=== PATIENT | female | born 1945 | race Caucasian/White ===

== ENCOUNTER 2017-12-23 07:50 | Observation (INO) | payer BC, MEDICARE ==
[2017-12-21 09:40] LABS: BASOPHILS % (AUTO) 0.5 % (0.0-5.0); EOSINOPHILS % (AUTO) 0.6 % (0.0-8.0); HEMATOCRIT 34.4 % (36-48); LYMPHOCYTES % (AUTO) 14.7 % (21.0-51.0); MEAN CORPUSCULAR HGB CONC 34.2 g/dL (32.0-36.0); MEAN CORPUSCULAR VOLUME 93.5 fL (79-99); MONOCYTES % (AUTO) 9.4 % (3.0-13.0); NEUTROPHILS % (AUTO) 74.8 % (40.0-77.0); PLATELET COUNT (AUTO) 385 K/uL (130-400); RED BLOOD CELL COUNT(AUTO) 3.68 MIL/uL (4.00-5.50); RED CELL DISTRIBUTION WIDTH 15.1 % (11.0-15.5); WHITE BLOOD COUNT (AUTO) 12.3 K/uL (4.8-10.8)
[2017-12-21 09:50] LABS: CREATININE 0.8 mg/dL (0.5-1.5); POTASSIUM 4.7 mmol/L (3.5-5.1)
[2017-12-21 09:59] VITALS: BP 128/67
[2017-12-21 10:03] LABS: INR 1.85 (0.85-1.15); PARTIAL THROMBOPLASTIN TIME 31.6 SEC (26.3-35.5); PROTHROMBIN TIME 19.2 SEC (9.6-11.6)
[2017-12-23] VITALS (10 sets, daily range): BP systolic 90–119; BP diastolic 47–76
[~2017-12-23] VITALS: Ht 160 cm; Wt 62.6 kg
[~2017-12-23 07:50] MED LIST: ALLO300T2 PO; ATOR10 PO; COLC0.6C3 PO; FURO40TA5 PO; GABA-318 PO; LOSA25TA21 PO; METO-409 PO; POTA-79 PO; SPIR25TA6 PO; TRAM50TA4 PO; TYL3 PO; WARF6TAB49 PO
[2017-12-23] MEDS ORDERED: CEFAZOLIN SODIUM 1 GM VIAL IVP ONE (08:00)
[2017-12-23 08:10] LABS: BASOPHILS % (AUTO) 0.8 % (0.0-5.0); EOSINOPHILS % (AUTO) 0.9 % (0.0-8.0); HEMATOCRIT 36.7 % (36-48); LYMPHOCYTES % (AUTO) 17.3 % (21.0-51.0); MEAN CORPUSCULAR HEMOGLOBIN 31.6 pg (27.0-33.0); MEAN CORPUSCULAR HGB CONC 33.7 g/dL (32.0-36.0); MEAN CORPUSCULAR VOLUME 93.7 fL (79-99); MONOCYTES % (AUTO) 8.5 % (3.0-13.0); NEUTROPHILS % (AUTO) 72.5 % (40.0-77.0); PLATELET COUNT (AUTO) 387 K/uL (130-400); RED BLOOD CELL COUNT(AUTO) 3.91 MIL/uL (4.00-5.50); RED CELL DISTRIBUTION WIDTH 15.5 % (11.0-15.5); WHITE BLOOD COUNT (AUTO) 12.8 K/uL (4.8-10.8)
[2017-12-23] MEDS ORDERED: BUPIVACAINE/PF 0.25% 30ML VIAL IJ ONE ×2 (09:00→12:11)
[2017-12-23] MEDS ORDERED: LIDOCAINE HCL 1% MDV 50ML VIAL ONE ×2 (09:01→12:11)
[2017-12-23] MEDS ORDERED: CEFAZOLIN SODIUM 1 GM VIAL ONE (09:01)
[2017-12-23] MEDS ORDERED: MIDAZOLAM HCL 1 MG/ML 2ML VIAL ONE ×4 (09:01→14:11)
[2017-12-23] MEDS ORDERED: MEPERIDINE-PF 25 MG/ML SYG ONE ×4 (09:01→14:12)
[2017-12-23] MEDS ORDERED: ISOVUE-300 100 ML VIAL IV ONE ×2 (09:01→13:04)
[2017-12-23] MEDS ORDERED: SODIUM CHLORIDE 0.9% 1000ML 1,000 ML IV ONE (09:20)
[2017-12-23 09:27] LABS: APPEARANCE,URINE CLEAR (CLEAR); BILIRUBIN,URINE NEGATIVE (NEGATIVE); COLOR,URINE YELLOW (YELLOW); GLUCOSE, URINE (UA) NEGATIVE (NEGATIVE); KETONES,URINE NEGATIVE (NEGATIVE); LEUKOCYTE ESTERASE ,URINE NEGATIVE (NEGATIVE); NITRATE,URINE NEGATIVE (NEGATIVE); OCCULT BLOOD,URINE NEGATIVE (NEGATIVE); PROTEIN,URINE NEGATIVE (NEGATIVE); UROBILINOGEN,URINE 0.2 mg/dL (0.2-1.0)
[2017-12-23] MEDS ORDERED: CEFAZOLIN 1GM / D5W 50ML 150 ML ONE (12:12)
[2017-12-23] MEDS ORDERED: LIDOCAINE HCL 2% 20ML ONE (15:04)
[2017-12-23] MEDS ORDERED: ACETAMINOPHEN-CODEINE 300/30MG TAB PO PRN ×2 (16:15)
[2017-12-23] MEDS ORDERED: TRAMADOL HCL 50 MG TABLET PO PRN (16:15)
[2017-12-23] MEDS ORDERED: ACETAMINOPHEN 325 MG TAB PO PRN (16:15)
[2017-12-23] MEDS: METOPROLOL TARTRATE 50 MG TAB PO SCH (20:59)
[2017-12-23] MEDS ORDERED: ATORVASTATIN CALCIUM 10 MG TABLET PO SCH (21:00)
[2017-12-23] MEDS ORDERED: GABAPENTIN 300 MG CAPSULE PO SCH (21:00)
[2017-12-23] MEDS: FUROSEMIDE 40 MG TABLET PO SCH (21:29)
[2017-12-23] MEDS: CEPHALEXIN 500 MG CAPSULE PO SCH (21:30)
[2017-12-23] MEDS: ACETAMINOPHEN-CODEINE 300/30MG TAB PO SCH ×2 (22:15→23:03)
[2017-12-24 03:45] VITALS: BP 103/57
[2017-12-24 04:09] LABS: BASOPHILS % (AUTO) 0.5 % (0.0-5.0); EOSINOPHILS % (AUTO) 1.2 % (0.0-8.0); HEMATOCRIT 33.3 % (36-48); LYMPHOCYTES % (AUTO) 5.9 % (21.0-51.0); MEAN CORPUSCULAR HEMOGLOBIN 31.1 pg (27.0-33.0); MEAN CORPUSCULAR HGB CONC 33.6 g/dL (32.0-36.0); MEAN CORPUSCULAR VOLUME 92.5 fL (79-99); MONOCYTES % (AUTO) 7.8 % (3.0-13.0); NEUTROPHILS % (AUTO) 84.6 % (40.0-77.0); PLATELET COUNT (AUTO) 315 K/uL (130-400); RED CELL DISTRIBUTION WIDTH 15.1 % (11.0-15.5)
[2017-12-24 04:23] LABS: PROTHROMBIN TIME 10.5 SEC (9.6-11.6)
[2017-12-24] MEDS: CEPHALEXIN 500 MG CAPSULE PO SCH (05:18)
[2017-12-24 07:30] VITALS: BP 113/66
[2017-12-24] MEDS ORDERED: DOXY100C2 PO (08:28)
[2017-12-24] MEDS: METOPROLOL TARTRATE 50 MG TAB PO SCH (08:33)
[2017-12-24] MEDS: FUROSEMIDE 40 MG TABLET PO SCH (08:33)
[2017-12-24] MEDS ORDERED: FAMOTIDINE 20MG TAB 20 MG TAB PO SCH (09:00)
[2017-12-24] MEDS ORDERED: POTASSIUM CHLORIDE 20 MEQ ERTAB PO SCH (09:00)
[2017-12-24] MEDS ORDERED: DOXYCYCLINE HYCLATE 100 MG TABLET PO SCH (09:00)
[2017-12-24] MEDS ORDERED: LOSARTAN 50 MG TABLET PO SCH (09:00)
[2017-12-24] MEDS ORDERED: ALLOPURINOL 300 MG TABLET PO SCH (09:00)
[2017-12-24] MEDS ORDERED: COLCHICINE 0.6 MG TABLET PO SCH (09:00)
[2017-12-24] MEDS ORDERED: SPIRONOLACTONE 25 MG TAB PO SCH (09:00)
[2017-12-24 11:10] VITALS: BP 87/57
[2017-12-24] MEDS ORDERED: WARFARIN SODIUM 2 MG TAB PO SCH (16:00)
== END 2017-12-24 14:15 | disposition home or self-care (01) ==
LOC: DAH 07:50 → DAHIP 07:51 → 2DH 17:04
PROVIDERS: ADMIT Family Medicine; ATTEND Family Medicine
DX: I25.5 Ischemic cardiomyopathy (principal); I48.2 Chronic atrial fibrillation; I11.0 Hypertensive heart disease with heart failure; E78.5 Hyperlipidemia, unspecified; I50.43 Acute on chronic combined systolic (congestive) and diastolic (congestive) heart failure; D72.829 Elevated white blood cell count, unspecified; I27.20 Pulmonary hypertension, unspecified; I35.0 Nonrheumatic aortic (valve) stenosis; Z87.891 Personal history of nicotine dependence; Z95.810 Presence of automatic (implantable) cardiac defibrillator; Z98.49 Cataract extraction status, unspecified eye; Z96.641 Presence of right artificial hip joint; Z82.49 Family history of ischemic heart disease and other diseases of the circulatory system; Z79.01 Long term (current) use of anticoagulants
CPT/HCPCS: 33225; 33233; 33249; 36415 ×3; 71045; 80048; 81003; 85025 ×3; 85610 ×2; 85730; 93005 ×3; 93619; 93650; A4649; C1732; C1769 ×3; C1882; C1895; C1900; G0378 ×30; J0690; J1644; J2175 ×3; J2250 ×3; J3490 ×3; J7030; Q9967; 93600; 93613; 99152; 99153

== ENCOUNTER 2018-08-19 14:30 | Inpatient (IN) | payer MEDICARE ==
[~2018-08-19] VITALS: Ht 160 cm; Wt 67.2 kg
[~2018-08-19 14:30] MED LIST changes: +DOXY100C2 PO; +LOSA25TA16 PO; -LOSA25TA21 PO
[2018-08-19 15:27] LABS: BASOPHILS % (AUTO) 0.7 % (0.0-5.0); EOSINOPHILS % (AUTO) 0.4 % (0.0-8.0); HEMATOCRIT 29.1 % (36-48); LYMPHOCYTES % (AUTO) 12.7 % (21.0-51.0); MEAN CORPUSCULAR HEMOGLOBIN 28.1 pg (27.0-33.0); MEAN CORPUSCULAR HGB CONC 32.8 g/dL (32.0-36.0); MEAN CORPUSCULAR VOLUME 85.5 fL (79-99); MONOCYTES % (AUTO) 10.3 % (3.0-13.0); NEUTROPHILS % (AUTO) 75.9 % (40.0-77.0); PLATELET COUNT (AUTO) 486 K/uL (130-400); RED BLOOD CELL COUNT(AUTO) 3.41 MIL/uL (4.00-5.50); RED CELL DISTRIBUTION WIDTH 15.5 % (11.0-15.5); WHITE BLOOD COUNT (AUTO) 10.4 K/uL (4.8-10.8)
[2018-08-19 15:46] LABS: INR 1.1 (0.85-1.15); PARTIAL THROMBOPLASTIN TIME 28.8 SEC (26.3-35.5); PROTHROMBIN TIME 11.5 SEC (9.6-11.6)
[2018-08-19 15:52] LABS: CREATININE 0.7 mg/dL (0.5-1.5); POTASSIUM 4.1 mmol/L (3.5-5.1)
[2018-08-19 15:54] LABS: B-TYPE NATRIURETIC PEPTIDE 514 pg/mL (0-100)
[2018-08-19 15:57] LABS: ALBUMIN 3.2 g/dL (3.5-5.0); BILIRUBIN,TOTAL 0.7 mg/dL (0.2-1.0); TOTAL PROTEIN, SERUM 7.3 g/dL (6.0-8.3)
[2018-08-19] MEDS ORDERED: MORPHINE SULFATE 4 MG/1ML SYG IV PRN (16:30)
[2018-08-19] MEDS ORDERED: ACETAMINOPHEN-CODEINE 300/30MG TAB PO PRN (16:30)
[2018-08-19] MEDS ORDERED: VANCOMYCIN PROTOCOL PER PHARMACY IV PRN (16:30)
[2018-08-19] MEDS ORDERED: CLINDAMYCIN 600 MG/D5% WATER 50 ML IV ONE (16:39)
[2018-08-19] MEDS ORDERED: ACETAMINOPHEN 325 MG TAB PO PRN (16:45)
[2018-08-19] MEDS ORDERED: ONDANSETRON HCL 4 MG/2 ML VIAL IVP PRN (16:45)
[2018-08-19 18:33] VITALS: BP 118/59
[2018-08-19] MEDS ORDERED: PHARMACY COMMUNICATION MISC SCH (19:45)
[2018-08-19] MEDS: ZOSYN 3.375GM+NS 50ML 50 ML IV SCH (20:26)
[2018-08-19] MEDS: SODIUM CHLORIDE 0.9% 1000ML 1,000 ML IV SCH (20:27)
[2018-08-19] MEDS ORDERED: COMPOUND IV REFRIGERATED 1 EACH IVSOLN MISC PRN (20:30)
[2018-08-19] MEDS: FUROSEMIDE 10 MG/ML 2ML VIAL IV SCH (21:33)
[2018-08-19] MEDS: VANCOMYCIN 750MG + NS 250 ML IV SCH ×2 (21:34)
[2018-08-19] MEDS: FAMOTIDINE 20MG TAB 20 MG TAB PO SCH (21:34)
[2018-08-19 23:00] VITALS: BP 124/55
[2018-08-20 03:00] VITALS: BP 136/77
[2018-08-20] MEDS ORDERED: WARF6TAB49 PO (03:27)
[2018-08-20] MEDS ORDERED: METO-409 PO (03:27)
[2018-08-20] MEDS ORDERED: GABA-318 PO (03:27)
[2018-08-20] MEDS ORDERED: ATOR20TA65 PO (03:27)
[2018-08-20] MEDS ORDERED: LOSA25TA16 PO (03:27)
[2018-08-20 03:44] LABS: APPEARANCE,URINE Clear (CLEAR); BILIRUBIN,URINE Negative (NEGATIVE); COLOR,URINE Yellow (YELLOW); GLUCOSE, URINE (UA) Negative (NEGATIVE); KETONES,URINE Negative (NEGATIVE); LEUKOCYTE ESTERASE ,URINE Negative (NEGATIVE); NITRATE,URINE Negative (NEGATIVE); OCCULT BLOOD,URINE Negative (NEGATIVE); PROTEIN,URINE Negative (NEGATIVE)
[2018-08-20] MEDS: ZOSYN 3.375GM+NS 50ML 50 ML IV SCH ×3 (05:09→21:07)
[2018-08-20] MEDS: SODIUM CHLORIDE 0.9% 1000ML 1,000 ML IV SCH (05:45)
[2018-08-20 06:09] LABS: HEMATOCRIT 28.6 % (36-48); MEAN CORPUSCULAR HEMOGLOBIN 27.3 pg (27.0-33.0); MEAN CORPUSCULAR HGB CONC 32.3 g/dL (32.0-36.0); MEAN CORPUSCULAR VOLUME 84.5 fL (79-99); PLATELET COUNT (AUTO) 441 K/uL (130-400); RED BLOOD CELL COUNT(AUTO) 3.38 MIL/uL (4.00-5.50); RED CELL DISTRIBUTION WIDTH 15.5 % (11.0-15.5); WHITE BLOOD COUNT (AUTO) 11.7 K/uL (4.8-10.8)
[2018-08-20 06:21] LABS: INR 1.18 (0.85-1.15); PROTHROMBIN TIME 12.4 SEC (9.6-11.6)
[2018-08-20 06:24] LABS: ALBUMIN 2.9 g/dL (3.5-5.0); BILIRUBIN,TOTAL 1.4 mg/dL (0.2-1.0); CREATININE 0.7 mg/dL (0.5-1.5); POTASSIUM 3.6 mmol/L (3.5-5.1); TOTAL PROTEIN, SERUM 6.8 g/dL (6.0-8.3)
[2018-08-20 06:39] LABS: B-TYPE NATRIURETIC PEPTIDE 962 pg/mL (0-100)
[2018-08-20 08:00] VITALS: BP 130/63
--- NOTE | 2018-08-20 09:10 | NUR ---
IA MET W PT, AAOX3, LIVES W SPOUSE, HAS WALKER, WEAKER THAN USUAL , SHORT OF BREATH, STATES HAS BEEN HAVING HH- [facility] COME TO DO THERAPY . FEELS SAFE TO RETURN HOME, STATES JUST NEEDS MORE THERAPY AT HOME; CM TO FOLLOW
[2018-08-20] MEDS: ENOXAPARIN SODIUM 30 MG/0.3 ML SQ SCH (09:57)
[2018-08-20] MEDS: FUROSEMIDE 10 MG/ML 2ML VIAL IV SCH ×3 (09:57→19:59)
[2018-08-20] MEDS: FAMOTIDINE 20MG TAB 20 MG TAB PO SCH ×2 (09:58→19:45)
[2018-08-20] MEDS: VANCOMYCIN 750MG + NS 250 ML IV SCH ×4 (09:59→21:07)
[2018-08-20] MEDS ORDERED: VANCOMYCIN PROTOCOL PER PHARMACY IV PRN (11:00)
[2018-08-20 12:02] VITALS: BP 110/62
--- NOTE | 2018-08-20 13:17 | NUR ---
CALLED DR. JOSÉ TO LET HIS PATIENT KNOW THAT SHE IS IN THE HOSPITAL, [place] THE VISITING TEACHER IS AWARE
[2018-08-20 16:00] VITALS: BP 115/69
[2018-08-20 19:00] VITALS: BP 117/62
[2018-08-20] MEDS: POTASSIUM CHLORIDE 10% ELIXIR 20 MEQ/15 ML UDCUP PO SCH (19:44)
[2018-08-20 23:00] VITALS: BP 120/71
[2018-08-21 03:00] VITALS: BP 127/58
[2018-08-21] MEDS: ZOSYN 3.375GM+NS 50ML 50 ML IV SCH (04:46)
[2018-08-21 06:29] LABS: HEMATOCRIT 27.5 % (36-48); MEAN CORPUSCULAR HEMOGLOBIN 27.2 pg (27.0-33.0); MEAN CORPUSCULAR HGB CONC 32.3 g/dL (32.0-36.0); MEAN CORPUSCULAR VOLUME 84.3 fL (79-99); PLATELET COUNT (AUTO) 434 K/uL (130-400); RED BLOOD CELL COUNT(AUTO) 3.27 MIL/uL (4.00-5.50); RED CELL DISTRIBUTION WIDTH 15.6 % (11.0-15.5); WHITE BLOOD COUNT (AUTO) 11.4 K/uL (4.8-10.8)
[2018-08-21 06:42] LABS: ALBUMIN 2.7 g/dL (3.5-5.0); BILIRUBIN,TOTAL 0.9 mg/dL (0.2-1.0); CREATININE 0.7 mg/dL (0.5-1.5); POTASSIUM 3.2 mmol/L (3.5-5.1); TOTAL PROTEIN, SERUM 6.6 g/dL (6.0-8.3)
[2018-08-21 08:09] VITALS: BP 107/54
[2018-08-21] MEDS: POTASSIUM CHLORIDE 10% ELIXIR 20 MEQ/15 ML UDCUP PO SCH ×2 (09:00→20:59)
[2018-08-21] MEDS ORDERED: LOPERAMIDE HCL 2 MG CAP PO SCH (09:55)
[2018-08-21] MEDS ORDERED: ACETAMINOPHEN 325 MG TAB PO PRN (10:15)
[2018-08-21] MEDS ORDERED: HYDROCODONE/ACETAMINOPHEN 5/325 MG TAB PO PRN (10:15)
[2018-08-21] MEDS ORDERED: LEVOFLOXACIN 500 MG/D5W 100 ML 100 ML IV SCH (10:15)
[2018-08-21 12:18] VITALS: BP 125/66
[2018-08-21] MEDS: FAMOTIDINE 20MG TAB 20 MG TAB PO SCH ×2 (13:40→20:59)
[2018-08-21] MEDS: ENOXAPARIN SODIUM 30 MG/0.3 ML SQ SCH (13:52)
[2018-08-21] MEDS ORDERED: POTASSIUM CHLORIDE 20 MEQ ERTAB PO ONE ×2 (14:05→21:04)
[2018-08-21] MEDS: CLINDAMYCIN 300 MG/D5W 50 ML 50 ML IV SCH ×2 (14:45→20:58)
[2018-08-21 16:25] VITALS: BP 120/71
--- NOTE | 2018-08-21 18:23 | NUR ---
CM NOTE cm spoke to pt regarding d/c planning. CM explained MD recommendations for short term snf/rehab. States she recently went to [facility] and is ok to return to same facility. CM obtained consent and faxed referral.
--- NOTE | 2018-08-21 18:30 | NUR ---
CALL TO RADIOLOGY FOR F/U ON 2 D ECHO T/C PLACED AND SPOKE WITH THERESE, STATES DE [place] IS AWARE AND WILL DO 2 DECHO TOMORROW.
[2018-08-21 20:00] VITALS: BP 115/66
[2018-08-21] MEDS: FUROSEMIDE 10 MG/ML 2ML VIAL IV SCH (20:58)
[2018-08-21] MEDS: LACTOBACILLUS RHAMNOSUS GG 1 EACH CAP.SPRINK PO SCH (20:58)
[2018-08-21 23:00] VITALS: BP 109/66
[2018-08-22] MEDS: CLINDAMYCIN 300 MG/D5W 50 ML 50 ML IV SCH ×3 (02:47→15:16)
[2018-08-22 03:00] VITALS: BP 116/60
[2018-08-22 07:23] LABS: HEMATOCRIT 26.4 % (36-48); MEAN CORPUSCULAR HGB CONC 32.4 g/dL (32.0-36.0); MEAN CORPUSCULAR VOLUME 83.4 fL (79-99); PLATELET COUNT (AUTO) 384 K/uL (130-400); RED BLOOD CELL COUNT(AUTO) 3.17 MIL/uL (4.00-5.50); RED CELL DISTRIBUTION WIDTH 15.1 % (11.0-15.5); WHITE BLOOD COUNT (AUTO) 9.5 K/uL (4.8-10.8)
[2018-08-22 07:43] LABS: ALBUMIN 2.7 g/dL (3.5-5.0); BILIRUBIN,TOTAL 0.5 mg/dL (0.2-1.0); CREATININE 0.6 mg/dL (0.5-1.5); POTASSIUM 3.4 mmol/L (3.5-5.1); TOTAL PROTEIN, SERUM 6.8 g/dL (6.0-8.3)
[2018-08-22 08:21] VITALS: BP 120/75
[2018-08-22] MEDS: LACTOBACILLUS RHAMNOSUS GG 1 EACH CAP.SPRINK PO SCH ×2 (09:27→15:16)
[2018-08-22] MEDS: FAMOTIDINE 20MG TAB 20 MG TAB PO SCH (09:27)
[2018-08-22] MEDS: ENOXAPARIN SODIUM 30 MG/0.3 ML SQ SCH (09:35)
[2018-08-22 13:39] VITALS: BP 133/74
--- NOTE | 2018-08-22 15:29 | NUR ---
RD Notification for Coumadin RD offered diet and nutrition education to patient, however patient denied the need for diet education and exemplified understanding of dietary recommendations for Coumadin usage. Patient screen: Patient reports poor appetite and agrees to receive Ensure at lunch for supplemental calorie-protein intake. Patient also reported previous nausea yesterday but is now resolved with medication. RD to continue to monitor Patient PO and nutritional labs. Please notify RD as nutritional concerns arise. Thank you. Addendum: 08/22/18 at [address] RD Amended: Links added.
--- NOTE | 2018-08-22 16:01 | NUR ---
DC Plan Patient accepted to [facility]. PASRR completed and faxed to Jamila Gmoes fx: [phone]. Also placed copy of PASRR in patient's packet. CD Addendum: 08/22/18 at 1602 by LIAN LARSON CM Amended: Links added.
[2018-08-22 17:17] VITALS: BP 119/67
[2018-08-22] MEDS ORDERED: POTASSIUM CHLORIDE 10% ELIXIR 20 MEQ/15 ML UDCUP PO SCH (17:30)
[2018-08-22] MEDS ORDERED: POTASSIUM CHLORIDE 20 MEQ ERTAB PO SCH (19:00)
--- NOTE | 2018-08-22 19:15 | NUR ---
DISCHARGE PATIENT GIVEN DISCHARGE INSTRUCTIONS VIA TEACH BACK. 20G PIV TO LFA, DISCONTINUED, TIP INTACT. PATIENT TO BE TRANSFERRED TO [facility] FOR REHAB AND CONTINUATION OF IV ANTIBIOTICS. CLINDAMYCIN 300MG IV Q 6 HOURS. REPORT GIVEN TO [facility] AT [facility]. PATIENT PENDING TRANSPORTER FOR TRANSFER. PATIENT STABLE AT THIS TIME.
[2018-08-22 19:22] VITALS: BP 124/68
--- NOTE | 2018-08-22 20:00 | NUR ---
DISCHARGE [facility] STAFF HERE TO TRANSFER PATIENT TO [facility] VIA VAN. ALL IV SITES ARE DISCONTINUED, PATIENT NOT ON TELEMETRY. PATIENT ASSISTED TO WHEELCHAIR WITH ONE PERSON ASSIST. PATIENT DID WELL WITH ASSIST OF WALKER. PATIENT HAS ALL BELONGINGS AND DISCHARGE PAPERWORK WITH HER. PATIENT IS DISCHARGED.
== END 2018-08-22 20:05 | DRG 292 ==
LOC: EDH 14:30 → EDHIP 16:25 → OBSVTOIN 16:25 → 3CH 18:50
PROVIDERS: ADMIT Hospitalist; ATTEND Hospitalist
DX: I11.0 Hypertensive heart disease with heart failure (principal); L03.116 Cellulitis of left lower limb; I50.9 Heart failure, unspecified; I48.91 Unspecified atrial fibrillation; E78.5 Hyperlipidemia, unspecified; E87.6 Hypokalemia; I25.10 Atherosclerotic heart disease of native coronary artery without angina pectoris; Z96.652 Presence of left artificial knee joint; R19.7 Diarrhea, unspecified; Z79.01 Long term (current) use of anticoagulants; Z80.6 Family history of leukemia; Z82.49 Family history of ischemic heart disease and other diseases of the circulatory system; Z79.899 Other long term (current) drug therapy
CPT/HCPCS: 36415; 71045; 80053; 80202; 81003; 82948; 83605; 83880; 84484; 85025; 85027; 85610; 85651; 85730; 86140; 87040; 87324; 87804; 93005; 93306; 93970; 97039; A6250; G0378; J1650; J1940; J1956; J2405; J2543; J3370; J3490; J7030

== ENCOUNTER 2018-12-28 11:54 | Day surgery (SDC) | payer OTHER ==
[~2018-12-28] VITALS: Ht 170 cm; Wt 71.7 kg
[2018-12-28] VITALS (11 sets, daily range): BP systolic 115–139; BP diastolic 35–77
[~2018-12-28 11:54] MED LIST changes: -ATOR10 PO; +ATOR20TA65 PO; -COLC0.6C3 PO; -DOXY100C2 PO; -FURO40TA5 PO; -GABA-318 PO; +GABA600T10 PO; -LOSA25TA16 PO; +LOSA25TA41 PO; -SPIR25TA6 PO; -TRAM50TA4 PO; -WARF6TAB49 PO
[2018-12-28] MEDS ORDERED: DRON2.5C12 PO (13:09)
[2018-12-28] MEDS ORDERED: TRAZ-185 PO (13:09)
[2018-12-28] MEDS ORDERED: ESOM40CA PO (13:09)
[2018-12-28] MEDS ORDERED: NYST5ORA7 PO (13:09)
[2018-12-28] MEDS ORDERED: SPIR25TA6 PO (13:09)
[2018-12-28] MEDS ORDERED: BALS60OI TP (13:09)
[2018-12-28] MEDS ORDERED: METO5TAB7 PO (13:09)
[2018-12-28] MEDS ORDERED: DIGO0.12 PO (13:09)
[2018-12-28] MEDS ORDERED: SODIUM CHLORIDE 0.9% 1000ML 1,000 ML IV ONE (13:35)
[2018-12-28] MEDS ORDERED: CEFAZOLIN SODIUM 1 GM VIAL ONE (13:35)
[2018-12-28] MEDS ORDERED: PROPOFOL 10 MG/ML 20ML VIAL IV ONE (14:17)
[2018-12-28] MEDS ORDERED: LIDOCAINE HCL-MPF 2% 5ML VIAL ONE (14:17)
[2018-12-28] MEDS ORDERED: PHENYLEPHRINE HCL 10 MG/ML 1ML VIAL IV ONE (14:33)
== END 2018-12-28 16:20 ==
LOC: SUH 11:54 → DAH 16:20
PROVIDERS: ATTEND Internal Medicine Gastroenterology
DX: R13.10 Dysphagia, unspecified (principal); K29.00 Acute gastritis without bleeding; K21.0 Gastro-esophageal reflux disease with esophagitis; D50.9 Iron deficiency anemia, unspecified; I13.0 Hypertensive heart and chronic kidney disease with heart failure and stage 1 through stage 4 chronic kidney disease, or unspecified chronic kidney disease; N18.2 Chronic kidney disease, stage 2 (mild); I50.43 Acute on chronic combined systolic (congestive) and diastolic (congestive) heart failure; I42.9 Cardiomyopathy, unspecified; M19.90 Unspecified osteoarthritis, unspecified site; M10.9 Gout, unspecified; I48.0 Paroxysmal atrial fibrillation; Z79.899 Other long term (current) drug therapy; Z87.01 Personal history of pneumonia (recurrent); Z87.440 Personal history of urinary (tract) infections; Z98.890 Other specified postprocedural states; Z90.49 Acquired absence of other specified parts of digestive tract; Z96.641 Presence of right artificial hip joint; Z95.0 Presence of cardiac pacemaker; Z79.01 Long term (current) use of anticoagulants; Z80.6 Family history of leukemia; Z82.49 Family history of ischemic heart disease and other diseases of the circulatory system
CPT/HCPCS: 43246; J0690; J2370; J2704; J3490; J7030